=== PATIENT | female | born 1960 | race Caucasian/White ===

== ENCOUNTER 2016-10-10 04:56 | Emergency (ER) | payer OTHER ==
[~2016-10-10] VITALS: Ht 162.6 cm; Wt 72.3 kg
[2016-10-10] MEDS ORDERED: SODIUM CHLORIDE 0.9% 1,000 ML IV ONE (05:10)
[2016-10-10] MEDS ORDERED: KETOROLAC 30 MG/1 ML ONE (05:11)
[2016-10-10] MEDS ORDERED: SODIUM CHLORIDE FLUSH 10ML SYR IVF ONE (05:30)
[2016-10-10] MEDS ORDERED: MORPHINE SULFATE 4 MG/ML, 1ML IVPush PRN (05:30)
[2016-10-10] MEDS ORDERED: KETOROLAC 60 MG/2 ML IM ONE (05:30)
[2016-10-10] MEDS ORDERED: ONDANSETRON 2MG/ML, 2ML IVPush ONE (05:30)
[2016-10-10] MEDS ORDERED: ONDANSETRON ODT 8 MG ONE (05:32)
[2016-10-10 05:33] LABS: HEMOGLOBIN 14.2 g/dL (11.7-16.4)
[2016-10-10 05:45] LABS: BLOOD UREA NITROGEN 19 mg/dL (7-18)
[2016-10-10] MEDS ORDERED: ONDANSETRON ODT 8 MG PO ONE ×2 (06:00)
[2016-10-10] MEDS ORDERED: MORPHINE SULFATE 4 MG/ML, 1ML ONE (06:11)
[2016-10-10 06:32] LABS: PATH.CAST-FLAG NOT PRESENT; SPERM-FLAG NOT PRESENT; SRC-FLAG NOT PRESENT; XTAL-FLAG NOT PRESENT; YLC-FLAG NOT PRESENT
[2016-10-10] MEDS ORDERED: DIAZEPAM 5 MG/ML, 2ML IVPush ONE (07:00)
[2016-10-10] MEDS ORDERED: DIAZEPAM 5 MG/ML, 2ML ONE (07:06)
[2016-10-10 07:40] VITALS: BP 110/63
== END 2016-10-10 07:49 | disposition home or self-care (01) ==
LOC: ED 07:43
DX: S39.012A Strain of muscle, fascia and tendon of lower back, initial encounter (principal); R25.2 Cramp and spasm; X50.9XXA Other and unspecified overexertion or strenuous movements or postures, initial encounter; Y93.89 Activity, other specified; Y92.89 Other specified places as the place of occurrence of the external cause; Y99.8 Other external cause status
CPT/HCPCS: 36415; 74176; 80048; 81001; 82040; 85025; 96372; 96374; 96375; 99285; J1885; J3360; Q0162

== ENCOUNTER → 2016-10-20 | Outpatient (CLI) | payer OTHER | END | disposition home or self-care (01) | LOC: CFH 13:50 | PROVIDERS: ATTEND Internal Medicine Hospice and Palliative Medicine | DX: R10.9 Unspecified abdominal pain (principal) | CPT/HCPCS: 76770 ==

== ENCOUNTER → 2016-11-14 | Outpatient (CLI) | payer OTHER | END | disposition home or self-care (01) | LOC: CFH 12:08 | PROVIDERS: ATTEND Internal Medicine Hospice and Palliative Medicine | DX: Z12.31 Encounter for screening mammogram for malignant neoplasm of breast (principal); R92.2 Inconclusive mammogram; N92.2 Excessive menstruation at puberty | CPT/HCPCS: 76377; 76642; G0202 ==

== ENCOUNTER → 2020-02-21 | Outpatient (CLI) | payer OTHER | END | disposition home or self-care (01) | LOC: CFH 09:30 | PROVIDERS: ATTEND Nurse Practitioner Family | DX: Z12.31 Encounter for screening mammogram for malignant neoplasm of breast (principal); M81.0 Age-related osteoporosis without current pathological fracture | CPT/HCPCS: 77063; 77067; 77080 ==

== ENCOUNTER 2020-02-24 09:53 | Outpatient (CLI) | payer OTHER | END 2020-02-24 23:59 | disposition home or self-care (01) | LOC: CFH 09:53 | PROVIDERS: ATTEND Nurse Practitioner Family | DX: N60.01 Solitary cyst of right breast (principal) | CPT/HCPCS: 76641 ==